=== PATIENT | male | born 1950 | race Two or more races ===

== ENCOUNTER 2018-06-10 23:33 | Inpatient (IN) | payer OTHER ==
[~2018-06-10] VITALS: Ht 170.2 cm; Wt 50.8 kg
--- NOTE | 2018-06-10 23:37 | NUR ---
[id number] FR [facility] VC FOR C/O SOB W/ CHEST TIGHTNESS X 2HRS, COUGH W/ CONGESTION X1 WK, GIVEN ALBUTEROL 5MG, ASPRIN 162MG, NTG X2 IN FIELD. PT IS AAOX4. WARM AND DRY TO TOUCH. MILD S/S OF DISTRESS NOTED. EXPIRAOTRY WHEEZING NOTED. PT PLACED ON DIE SET UP WORKER AND POX. RR EVEN W/ MILD DIFFICULTY. PT PLACED ON NC 3L/M PER MD. RT CALLED FOR BREATHING TREATMENT. BEDSIDE FOR EVAL.
--- NOTE | 2018-06-10 23:45 | NUR ---
BLOOD SPECIMEN COLLECTED AND RECEIVED BY JUAN
[2018-06-10] MEDS ORDERED: ASPIRIN 325 MG TABLET ONE (23:50)
[2018-06-10] MEDS ORDERED: ASPIRIN 81 MG TAB.CHEW ONE (23:53)
[2018-06-11] MEDS ORDERED: ALBUTEROL FS 2.5 MG/0.5 ML VIAL.NEB NEB ONE
[2018-06-11] MEDS ORDERED: ASPIRIN 325 MG TABLET PO ONE ×2
[2018-06-11 00:01] LABS: BASOPHILS % (AUTO) 0.5 % (0.0-2.0); EOSINOPHILS % (AUTO) 4.4 % (0.0-6.0); HEMATOCRIT 24 % (39-51); HEMOGLOBIN 7.8 g/dL (13.5-17.5); LYMPHOCYTES # (AUTO) 0.9 /CMM (0.8-4.8); LYMPHOCYTES % (AUTO) 27.8 % (20.0-44.0); MEAN CORPUSCULAR HGB CONC 33 g/dl (31.0-36.0); MEAN CORPUSCULAR VOLUME 79 fL (80-96); MONOCYTES # (AUTO) 0.4 /CMM (0.1-1.30); MONOCYTES % (AUTO) 12.6 % (2.0-12.0); NEUTROPHILS # (AUTO) 1.8 /CMM (1.8-8.9); NEUTROPHILS % (AUTO) 54.7 % (43.0-81.0); PLATELET COUNT (AUTO) 87 /CMM (150-450); RED BLOOD CELL COUNT(AUTO) 3.01 MIL/uL (4.5-6.0); WHITE BLOOD COUNT (AUTO) 3.3 K/uL (4.3-11.0)
[2018-06-11 00:09] LABS: CALCIUM, SERUM 8.8 mg/dL (8.5-10.1)
[2018-06-11] MEDS ORDERED: PANT40TA2 PO (00:09)
[2018-06-11] MEDS ORDERED: FURO80TA85 PO (00:09)
[2018-06-11] MEDS ORDERED: SPIR25TA6 PO (00:09)
[2018-06-11] MEDS ORDERED: LACT10SO29 PO (00:09)
[2018-06-11] MEDS ORDERED: ASPI-1169 PO (00:09)
[2018-06-11] MEDS ORDERED: LISI-607 PO (00:09)
[2018-06-11] MEDS ORDERED: ATOR40TA PO (00:09)
[2018-06-11] MEDS ORDERED: FERR325T23 PO (00:09)
[2018-06-11] MEDS ORDERED: TRAZ-182 PO (00:09)
[2018-06-11 00:23] LABS: ALBUMIN 2.9 g/dL (3.4-5.0); BILIRUBIN,DIRECT 0.2 mg/dL (0.0-0.2); BILIRUBIN,TOTAL 0.4 mg/dL (0.2-1.0); TOTAL PROTEIN, SERUM 7.1 g/dL (6.4-8.2)
[2018-06-11] MEDS ORDERED: ALBUTEROL FS 2.5 MG/0.5 ML VIAL.NEB ONE (00:38)
--- NOTE | 2018-06-11 00:56 | NUR ---
EPID DR GLADYS HERNANDEZ
--- NOTE | 2018-06-11 01:00 | NUR ---
PT RESTING IN BED WITH NO S/S OF DISTRESS NOTED
--- NOTE | 2018-06-11 01:07 | NUR ---
REPORT GIVEN TO FIELD OPERATIONS FARM MANAGERIRON CABA FOR TELLO
[2018-06-11] MEDS ORDERED: ALBUTEROL FS 2.5 MG/0.5 ML VIAL.NEB NEB PRN (01:30)
[2018-06-11] MEDS ORDERED: MAG HYDROX/AL HYDROX/SIMETH 30 ML UDC PO PRN (01:30)
[2018-06-11] MEDS ORDERED: ZOLPIDEM TARTRATE 5 MG TABLET PO PRN (01:30)
[2018-06-11] MEDS ORDERED: Z GUARD REMEDY 2 OZ OINT TP PRN (01:30)
[2018-06-11] MEDS ORDERED: IPRATROPIUM NEB FS 0.5 MG/2.5 ML AMPUL.NEB NEB PRN (01:30)
[2018-06-11] MEDS ORDERED: ACETAMINOPHEN 325 MG TABLET PO PRN (01:30)
[2018-06-11] MEDS ORDERED: LACTULOSE 10 G/15 ML UDC (PYXIS) PO PRN (01:30)
[2018-06-11] MEDS ORDERED: MAGNESIUM HYDROXIDE 30 ML UDC PO PRN (01:30)
[2018-06-11] MEDS ORDERED: ONDANSETRON HCL/PF 4 MG/2 ML VIAL IVP PRN (01:30)
[2018-06-11 02:00] VITALS: BP 125/64
--- NOTE | 2018-06-11 02:00 | NUR ---
AGRICULTURAL AGENT ADMISSION NOTES PATIENT CAME TO UNIT VIA GURNEY, ALERT, ORIENTED X 3. BREATHING EVEN AND UNLABORED, TOLERATING RA AT 98%. PATIENT HAS A LAC G#20 AND RIGHT INDEX FINGER G#22, INTACT AND PATENT, S/L. PATIENT IS FROM [facility] PATIENT AMBULATES USING A WALKER, BUT OF NOW, PATIENT REPORTS BEING UNSTABLE, URINAL AND COMMODE AT BEDSIDE. SKIN ASSESSMENT DONE, MULTIPLE SKIN ISSUES, PICTURES IN CHART. 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 BUSBOY IN PLACE, SINUS RHYTHM 77. PATIENT KEPT COMFORTABLE. ORIENTED TO CALL [facility], PLACED WITHIN REACH. BED IN LOW, LOCKED POSITION. SIDERAILS UPX2. WILL CONTINUE TO MONITOR ACCORDINGLY
[2018-06-11] MEDS ORDERED: FUROSEMIDE 40 MG/4 ML VIAL IV SCH (03:00)
[2018-06-11] MEDS: HYDROCODONE/APAP 5/325MG 1 EACH TABLET PO PRN ×3 (03:11→16:52)
[2018-06-11] MEDS: methylPREDNISolone SOD SUCC 125 MG/2ML VIAL IV SCH ×4 (03:14→21:08)
--- NOTE | 2018-06-11 03:15 | NUR ---
RN NOTES PATIENT COMPLAINING OF PAIN ON CHEST UPON COUGHING, TIGHTNESS, NON- RADIATING, 12/10. NORCO 5-325 GIVEN ORDERED
[2018-06-11 04:00] VITALS: BP_SYST 105; BP_SYST 116; BP_DIAS 43; BP_DIAS 58
--- NOTE | 2018-06-11 05:12 | NUR ---
RN NOTES CLARIFIED WITH PHARMACY REGARDING SOLU-MEDROL ADMINISTRATION. LAST GIVEN AT 0311HRS. PHARMACIST SAID IT IS OK TO GIVE AT 0500. ORIGINAL ORDER WAS TO GIVE AT 0130 , THEN GIVE AT 0500. PATIENT WAS NOT ON THE FLOOR YET AT 0130HRS, WAS GIVEN AT 0311. PHARMACIST SAID OK TO GIVE AT 0500. CHARGE NURSE MADE AWARE
--- NOTE | 2018-06-11 06:15 | NUR ---
RN NOTES PAGED DR GRAHAM TO REPORT PATIENT'S BSL- 247MG/DL. NO ANSWER YET. STILL WAITING FOR CALL BACK
[2018-06-11] MEDS ORDERED: DEXTROSE 50%-WATER 50 ML DISP.SYRIN IV PRN ×2 (07:00→11:00)
[2018-06-11] MEDS: INSULIN REGULAR, HUMAN 100 UNIT/ML 3 ML VIAL SQ PRN ×3 (07:05→17:19)
[2018-06-11] MEDS ORDERED: BLOOD SUGAR DIAGNOSTIC 1 EACH STRIP IN SCH (07:30)
--- NOTE | 2018-06-11 07:30 | NUR ---
Tele/RN - Assessment Patient in bed awake, A/O X 4, c/o moderate rib/chest pain [place] 7/10, [place] 1 tab given by night RN, no apparent distress seen, stable on room air, tele shows SR with PACs. Peripheral IV on the LAC and right index finger both are patent, intact, flushing well. Fall precautions maintained. Patient updated on plan of care and in agreement. Will continue with current medical management.
--- NOTE | 2018-06-11 07:41 | NUR ---
CODING COMPLIANCE MANAGER CLOSING NOTES PATIENT IN SITTING UP IN BED, WATCHING TV. ALERT, ORIENTED X 4. TELE MONITOR IN PLACE, SR 70 WITH PACs. IV ACCESS IN RAC G20 AND LEFT INDEX FINGER G22 , INTACT AND PATENT, S/L. SAFETY MEASURES IN PLACE. ENDORSED TO AM RN
[2018-06-11 08:00] VITALS: BP 129/68
[2018-06-11] MEDS: PANTOPRAZOLE 40 MG TABLET.DR PO SCH (08:45)
[2018-06-11] MEDS: LISINOPRIL (5MG) 5 MG TABLET PO SCH (08:46)
[2018-06-11] MEDS: ASPIRIN 81 MG TAB.CHEW PO SCH (08:46)
[2018-06-11] MEDS: SPIRONOLACTONE 25 MG TABLET PO SCH (08:50)
[2018-06-11] MEDS ORDERED: FERROUS SULFATE (325 MG) 325 MG/TAB TABLET PO SCH (09:00)
[2018-06-11] MEDS ORDERED: INSULIN REGULAR, HUMAN 100 UNIT/ML 3 ML VIAL SQ PRN (11:00)
[2018-06-11 11:12] LABS: THYROID STIMULATING HORMONE 0.971 uIU/mL (0.358-3.74)
--- NOTE | 2018-06-11 11:27 | NUR ---
WOUND CARE CONSULT: PT PRESENTS WITH SACRAL SCARRING AND MULTIPLE DRY SCABS AND BRUISES TO ARMS, PRESENT ON ADMISSION. RECOMMENDATIONS MADE FOR SKIN PROTECTION AND CARE. DISCUSSED WITH NURSING STAFF. WILL SEE PRN. CURRENT KAREN SCORE IS 17. MD IN AGREEMENT WITH PLAN OF CARE.
[2018-06-11] MEDS: BLOOD SUGAR DIAGNOSTIC 1 EACH STRIP IN SCH ×3 (11:36→22:53)
[2018-06-11 12:00] VITALS: BP 136/60
[2018-06-11] MEDS ORDERED: BLOOD SUGAR DIAGNOSTIC 1 EACH STRIP VI SCH (12:00)
[2018-06-11 16:00] VITALS: BP 166/67
--- NOTE | 2018-06-11 17:35 | NUR ---
Tele/RN - Closing notes Patient alert and oriented throughout the shift, remain afebrile, c/o intermittent chest/rib pain relieved by [place] 1 tab, tele shows SR-ST, prefers to be on oxygen at 2lpm via NC, SpO2 100%, noted with congestion, on breathing treatment and IV steroids. Patient also non-compliant with diet and treatment, explained the importance several times but still refused. Per patient's insurance, needs to transfer to [facility]. Charge nurse made aware. Fall precautions maintained. Will continue with current plan of care.
--- NOTE | 2018-06-11 19:45 | NUR ---
TELE/RN NOTES RECEIVED A CALL FROM JOSH FELIZ REGARDING INSURANCE DENIAL FOR HIS STAY IN [facility] REQUIRE TO BE TRANSFERED TO [facility], WITH AVAILABLE RM [phone], ADMITTING MD IS DR. GIBBONS WITH TRANSPORTATION AMBULANCE AUTHORIZED NUMBER [id number] TEL # [phone], TRINI MORENO TO CALL ONCE TRANSFER DONE AT [phone] AND TO GIVE REPORT TO RN AT [facility] [phone],. MD DATA ANALYST GLADYS SIMS MADE AWARE AND AGREED FOR PLAN FOR TRANSFER/PATIENT WAS MADE AWARE.
[2018-06-11 20:00] VITALS: BP 159/66
--- NOTE | 2018-06-11 20:54 | NUR ---
tele/rn notes RECEIVED ORDER FOR DISCHARGE FOR PATIENT AND OK TO TRANSFER BY ADMITTING MD.
[2018-06-11] MEDS ORDERED: TRAZODONE 50 MG TABLET PO SCH (22:00)
[2018-06-11] MEDS ORDERED: ATORVASTATIN 40 MG TABLET PO SCH (22:00)
--- NOTE | 2018-06-11 22:03 | NUR ---
TELE/RN NOTES PATIENT NON COMPLIANT, REFUSE TO HAVE TELE MONITOR ON AND INSIST TO SMOKE, PATIENT WAS PROVIDED TRANSFER INSTRUCTION DUE TO INSURANCE REASONS AND MADE AWARE, UNABLE TO COOPERATE AND REFUSE TO SIGN, MADE AWARE REGARDING REASON, AWARE, JOSH FELIZ INFORMED, AMBULANCE TRANSPORT INSURANCE PROFESSIONAL AT [address] [facility] TRIP @ [phone].
--- NOTE | 2018-06-11 22:51 | NUR ---
TELE/RN NOTES LAURA WS INFORMED ABOUT THE TRANSFER AND CHANGE HIS MIND AND DOES NOT WANT TO BE TRANSFERED BUT AMA PREFERED AND WANT TO GO BACK TO HIS HOME, TO CALL CM AND MD TO MAKE THEM AWARE.
--- NOTE | 2018-06-11 23:00 | NUR ---
TELE/RN NOTES MD GRAHAM INFORMED AND MADE AWARE PATIENT STATUS, NOT ALERT, AND REQUIRE ASSISTANCE DUE TO FORGETFULNESS, CONFUSED AT TIMES, WITH NO FAMILY BUT FRIEND, UNABLE TO RECALL WHERE HE LIVES, ICAME FROM ASSISTED LIVING AND [facility], WITH NEEDS FOR BREATHING TREATMENT DUE TO SOB EXACERBATION, NON COMPLIANT AT TIMES, AGREED TO STAY IN THE HOSPITAL AT THIS TIME,AND TO FOLLOW UP IN AM.
--- NOTE | 2018-06-11 23:00 | NUR ---
TELE/RN NOTES JOSH FELIZ CONTACTED, JACOB CONTACTED AND LEFT MESSAGE WITH MD FIRE SERVICES PLUMBER GLADYS REGARDING PATIETN REFUSAL TO BE TRANSFERED AND WOULD LIKE TO DO AMA INSTEAD. FRIEND PAPO INFORMED LEFT MESSAGE AT [phone]
[2018-06-12] VITALS: BP 164/76
--- NOTE | 2018-06-12 05:49 | NUR ---
TELE/RN NOTES PATIENT AGREED TO BE ON TELE MONITOR AND READING AT SR 78, REFUSE TO HAVE HIS BLOOD DRAW AT THIS TIME AND REQUEST LATER, REFUSE TO HAVE HIS 0500 SOLUMEDROL AT THIS TIME AND WOULD LIKE TO GET SOME REST.
[2018-06-12] MEDS: BLOOD SUGAR DIAGNOSTIC 1 EACH STRIP IN SCH (06:26)
[2018-06-12] MEDS: methylPREDNISolone SOD SUCC 125 MG/2ML VIAL IV SCH (06:30)
--- NOTE | 2018-06-12 06:36 | NUR ---
TELE/RN NOTES PATIENT TELE MONITOR REFUSE, BOX RECEIVED BY TELEMONITOR, BLOOD SUGAR CHECK AT 229, REFUSE TO HAVE SLIDING SCALE SLIDING SCALE, LAURA IS ON SOLUMEDROL, AWAITING TO FIND TRANSPORT, SIGNED AMA, AWAITING FOR FRIEND PAPO.
--- NOTE | 2018-06-12 06:49 | NUR ---
327-2 TELE/RN NOTES PATIENT ABLE TO VERBALIZE NEEDS, REQUIRE ASSISYANCE, USES BSC AND URINAL, DISCUSSED PLAN OF CARE, INFORMED THE RISK AND BENEFIT, REFUSE TRANSFER, STAYED OVERNIGHT FOR SAFETY MEASURES PATIENT ALERT X2 ONLY. MD MADE AWARE, MONITORED FOR SAFETY .
--- NOTE | 2018-06-12 07:15 | NUR ---
RN OPENING NOTES RECEIVED PT. SITTING IN THE HALLWAY. BREATHING ON ROOM AIR WITHOUT SOB. NO S/S OF ACUTE DISTRESS. PER RN REPORT PT. WANTS TO LEAVE AMA AND SIGNED THE AMA DOCUMENT. PT. IS WAITING FOR HIS FRIEND TO PICK HIM UP AT 0900. PT. VERBALIZED THAT HE WANTS TO GO BACK TO HIS HOME AT [address] [facility].
[2018-06-12 08:00] VITALS: BP 169/74
[2018-06-12] MEDS: ASPIRIN 81 MG TAB.CHEW PO SCH (08:18)
[2018-06-12] MEDS: SPIRONOLACTONE 25 MG TABLET PO SCH (08:18)
[2018-06-12] MEDS: PANTOPRAZOLE 40 MG TABLET.DR PO SCH (08:18)
[2018-06-12 08:20] VITALS: BP 163/66
[2018-06-12] MEDS: LISINOPRIL (5MG) 5 MG TABLET PO SCH (08:20)
--- NOTE | 2018-06-12 11:45 | NUR ---
PT. LEFT AMA BY TAXI TO [address] [place] [address], [phone]. 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 IS RETURNING TO HIS HOUSE. PT.'S GIRLFRIEND, AND MEAT CARVER WERE INVOLVED IN PT.'S DISCHARGE. BEFORE DISCHARGE PT. WAS A&OX4, AND GIVEN TYLENOL BEFORE DUE TO C/O PAIN FROM PREVIOUS RIB FRACTURE. PT. LEFT WITH BELONGINGS, AND DISCHARGE PACKET PAPERS WERE GIVEN TO PT.
[2018-06-13] MEDS ORDERED: LISINOPRIL (20MG) 20 MG TABLET PO SCH (09:00)
== END 2018-06-12 11:40 | disposition left against medical advice (07) | DRG 190 ==
LOC: ER 23:34 → TELE 06-11 00:34 → MED 06-12 10:49
PROVIDERS: ADMIT Registered Nurse; ATTEND Registered Nurse
DX: J44.1 Chronic obstructive pulmonary disease with (acute) exacerbation (principal); I21.A1 Myocardial infarction type 2; E44.0 Moderate protein-calorie malnutrition; Z68.1 Body mass index [BMI] 19.9 or less, adult; D61.818 Other pancytopenia; I50.32 Chronic diastolic (congestive) heart failure; I11.0 Hypertensive heart disease with heart failure; E11.9 Type 2 diabetes mellitus without complications; K70.30 Alcoholic cirrhosis of liver without ascites; B19.20 Unspecified viral hepatitis C without hepatic coma; K21.9 Gastro-esophageal reflux disease without esophagitis; D50.9 Iron deficiency anemia, unspecified; E88.09 Other disorders of plasma-protein metabolism, not elsewhere classified; F32.9 Major depressive disorder, single episode, unspecified; I25.2 Old myocardial infarction; Z79.4 Long term (current) use of insulin; E78.5 Hyperlipidemia, unspecified; D63.8 Anemia in other chronic diseases classified elsewhere; F10.20 Alcohol dependence, uncomplicated; K70.10 Alcoholic hepatitis without ascites; D69.6 Thrombocytopenia, unspecified
CPT/HCPCS: 36415; 71045-TC; 80048-TC; 80061-TC; 80076-TC; 82140-TC; 82728-TC; 82962-TC; 83540-TC; 83880; 84439-TC; 84443-TC; 84484-TC; 85025-TC; 85730-TC; 86850-TC; 87081-TC; 93307-TC; G0378; J1815; J1940; J2930